=== PATIENT | female | born 1965 | race Caucasian/White ===

== ENCOUNTER 2017-01-09 16:32 | Emergency (ER) | payer BC, OTHER ==
[2017-01-09 16:38] VITALS: BP 162/90
--- NOTE | 2017-01-09 18:14 | UC ---
Desirae Heredia Edward, scribed for Mack Mendez MD on 01/09/17 at 1726 . Back Pain HPI - HPI Summary HPI Summary: 51 y/o female presents to [facility] c/o lower back spasms. Pain started this morning after exercising. Pain is located in the lower midline back radiating to the sides but not to the legs, rated at a 7/10 and characterized as an aching pain. Patient worked on the exterior of her house recently which required . PMHx lower back spasms around 2 years ago (similar sx). SHx bilateral knee surgery. NKDA. - History of Current Complaint Chief Complaint: UCBackPain Stated Complaint: BACK PAIN Time Seen by Provider: 01/09/17 17:18 Hx Obtained From: Patient Hx Last Menstrual Period: ablation Onset/Duration: Sudden Onset - This morning after exercising Severity Initially: Moderate Severity Currently: Moderate Pain Intensity: 7 Pain Scale Used: 0-10 Numeric Back Pain: Is Discrete @ - Lower midline back, Radiates To - Sides of back Character: Aching, Spasmodic Related History: Similar Episode Dx As - Similar sx 2 years ago - Allergies/Home Medications Allergies/Adverse Reactions: Allergies Allergy/AdvReac Type Severity Reaction Status Date / Time No Known Allergies Allergy Verified 01/09/17 16:38 PMH/Surg Hx/FS Hx/Imm Hx Previously Healthy: No GI/ History: Gastroesophageal Reflux Psychological History: Depression - Surgical History Surgical History: Yes Surgery Procedure, Year, and Place: laprascopic knee surgery 2012. uterine ablation 2000 - Family History Known Family History: Negative: Hypertension, Diabetes - Social History Alcohol Use: Occasionally Substance Use Type: None Smoking Status (MU): Never Smoked Tobacco Review of Systems Constitutional: Negative Skin: Negative Eyes: Negative ENT: Negative Respiratory: Negative Cardiovascular: Negative Gastrointestinal: Negative Genitourinary: Negative Motor: Negative Neurovascular: Negative Musculoskeletal: Myalgia - Lower back spasms Neurological: Negative Psychological: Negative All Other Systems Reviewed And Are Negative: Yes Physical Exam Triage Information Reviewed: Yes Appearance: Well-Appearing, Pain Distress - Mild Vital Signs: Initial Vital Signs Temp 98.7 F 01/09/17 16:35 Pulse 77 01/09/17 16:35 Resp 18 01/09/17 16:35 BP 162/90 01/09/17 16:35 Pulse Ox 98 01/09/17 16:35 Eye Exam: Normal ENT: Positive: Normal ENT inspection Neck: Positive: Supple, Nontender Respiratory: Positive: Lungs clear, Normal breath sounds Cardiovascular: Positive: RRR Abdomen Description: Positive: Nontender, Soft Bowel Sounds: Positive: Present Musculoskeletal: Positive: Strength Intact, Other: - Tenderness @ midline low back and @ paraspinus muscles bilaterally. Neurological: Positive: Alert, Other: - No sensation deficits. Good reflexes Psychological Exam: Normal Skin Exam: Normal Back Pain Course/Dx - Course Course Of Treatment: Medications reviewed on patient visit. PATIENT WILL CONTINUE IBUPROFEN. RX NORCO AND FLEXERIL. - Differential Dx/Diagnosis Provider Diagnoses: LOW BACK STRAIN Discharge - Discharge Plan Condition: Stable Disposition: HOME Prescriptions: Cyclobenzaprine TAB* [Flexeril 10 MG TAB*] 10 mg PO TID PRN #15 tab PRN Reason: Pain HYDROcodone/ACETAMIN 5-325 MG* [[place] 5-325 TAB*] 1 tab PO Q4H PRN #20 tab MDD 6 PRN Reason: Pain Patient Education Materials: Low Back Strain (ED), Lower Back Exercises (ED) Referrals: Edvin Santoyo MD [Primary Care Provider] - Additional Instructions: FOLLOW UP WITH YOUR DOCTOR. GET RECHECKED FOR ANY WORSENING OF YOUR CONDITION OR QUESTIONS OR CONCERNS. The documentation as recorded by the Desirae barr Edward accurately reflects the service I personally performed and the decisions made by me, Mack Mendez MD.
== END 2017-01-09 18:06 | disposition home or self-care (01) ==
LOC: UCEAST 16:32
DX: S39.012A Strain of muscle, fascia and tendon of lower back, initial encounter (principal); K21.9 Gastro-esophageal reflux disease without esophagitis; F32.9 Major depressive disorder, single episode, unspecified; M62.830 Muscle spasm of back; X58.XXXA Exposure to other specified factors, initial encounter
CPT/HCPCS: 99212; G0463

== ENCOUNTER 2017-07-17 10:11 | Emergency (ER) | payer BC ==
[2017-07-17 10:33] VITALS: BP 145/59
--- NOTE | 2017-07-17 11:26 | UC ---
Eye Complaint HPI - HPI Summary HPI Summary: 52 yo female with sinus pressure and pain over a week now with bilateral eye redness and d/c x 1 day L>R no f/c - History of Current Complaint Chief Complaint: UCEye Stated Complaint: SINUS COMPLAINT, EYE COMPLAINT Time Seen by Provider: 07/17/17 11:17 Hx Obtained From: Patient Hx Last Menstrual Period: ablation Onset/Duration: Gradual Onset, Lasting Days Timing: Constant Severity Initially: Mild Severity Currently: Moderate Pain Intensity: 2 - max sinsuses Pain Scale Used: 0-10 Numeric Location of Injury: Conjunctiva Aggravating Factor(s): Nothing Alleviating Factor(s): Nothing Associated Signs And Symptoms: Positive: Drainage (Purulent) - Allergies/Home Medications Allergies/Adverse Reactions: Allergies Allergy/AdvReac Type Severity Reaction Status Date / Time No Known Allergies Allergy Verified 01/09/17 16:38 PMH/Surg Hx/FS Hx/Imm Hx Previously Healthy: Yes - Surgical History Surgical History: Yes Surgery Procedure, Year, and Place: laprascopic knee surgery 2012. uterine ablation 2000 - Family History Known Family History: Negative: Hypertension, Diabetes - Social History Alcohol Use: Occasionally Substance Use Type: None Smoking Status (MU): Never Smoked Tobacco Review of Systems Constitutional: Negative Skin: Negative Eyes: Drainage, Eye Redness ENT: Nasal Discharge, Sinus Congestion, Sinus Pain/Tenderness Respiratory: Negative Cardiovascular: Negative Gastrointestinal: Negative Genitourinary: Negative Motor: Negative Neurovascular: Negative Musculoskeletal: Negative Neurological: Negative Psychological: Negative Is Patient Immunocompromised?: No All Other Systems Reviewed And Are Negative: Yes Physical Exam Triage Information Reviewed: Yes Appearance: Well-Appearing, No Pain Distress, Well-Nourished Vital Signs: Initial Vital Signs Temp 98.4 F 07/17/17 10:28 Pulse 88 07/17/17 10:28 Resp 20 07/17/17 10:28 BP 145/59 07/17/17 10:28 Pulse Ox 98 07/17/17 10:28 Eyes: Positive: Conjunctiva Inflamed, Discharge ENT: Positive: Hearing grossly normal, Pharynx normal, Nasal congestion, Nasal drainage, Sinus tenderness. Negative: Trismus, Muffled voice, Hoarse voice Neck: Positive: Supple, Nontender, No Lymphadenopathy Respiratory: Positive: Lungs clear, Normal breath sounds, No respiratory distress, No accessory muscle use Cardiovascular: Positive: RRR Musculoskeletal: Positive: ROM Intact, No Edema Neurological: Positive: Alert Psychological Exam: Normal Skin Exam: Normal Eye Complaint Course/Dx - Differential Dx/Diagnosis Provider Diagnoses: conjunctivitis (R/L). acute sinusitis Discharge - Discharge Plan Condition: Stable Disposition: HOME Prescriptions: Amoxicillin/Clavulanate TAB* [Augmentin TAB 875*] 875 mg PO BID #28 tab Fluconazole 150 MG (NF) [Diflucan 150 mg (NF)] 150 mg PO ONCE #1 tab Polymyx/Trimethoprim OPTH* [Polytrim OPHTH*] 1 - 2 drop BOTH EYES QID #1 btl Patient Education Materials: Sinusitis (ED), Conjunctivitis (ED) Referrals: Edvin Santoyo MD [Primary Care Provider] - 4 Days (if not better)
== END 2017-07-17 11:41 | disposition home or self-care (01) ==
LOC: UCEAST 10:11
DX: H10.33 Unspecified acute conjunctivitis, bilateral (principal); J01.90 Acute sinusitis, unspecified
CPT/HCPCS: 99212; G0463

== ENCOUNTER 2019-10-29 06:50 | Emergency (ER) | payer BC ==
[2019-10-29] MEDS ORDERED: NS 0.9% 1000 ML** 1,000 ML IV ONE (06:57)
--- NOTE | 2019-10-29 07:02 | ED ---
HPI Chest Pain - HPI Summary HPI Summary: 54-year-old female with no significant past medical history presents to the emergency department today with chief complaint of episodes lasting minutes of palpitations, fast heart rate, left anterior 3 out of 4 stabbing chest pain with associated left shoulder pain, lightheadedness and tingling in her bilateral arms 3 days. Patient states her symptoms are made worse with exertion stating her heart rate increases however she has no increase in her chest pain. Patient denies associated arm pain, jaw pain, diaphoresis, abdominal pain. Patient states she has had increased stress in her life lately due to the Covid pandemic. Patient denies past medical history of heart disease or dysrhythmia, thyroid disease, blood clots. Patient denies family history of dysrhythmia, thyroid disorders but states she does have a positive family history of heart disease. Patient denies recreational drug use, alcohol use and endorses moderate caffeine intake daily. Patient states due to her symptoms she had difficulty sleeping yesterday evening. Patient is otherwise well and denies fevers, rash, nausea, vomiting, diarrhea, sore throat, nasal congestion, cough, exposure to COVID19. - History of Current Complaint Chief Complaint: EDChestPainROMI Time Seen by Provider: 10/29/19 06:56 Hx Obtained From: Patient Hx Last Menstrual Period: ablation Onset/Duration: Started Days Ago Timing: Intermittent, Lasting Minutes Initial Severity: Mild Current Severity: Mild Pain Intensity: 3 Pain Scale Used: 0-10 Numeric Chest Pain Location: Left Anterior Chest Pain Radiates: Yes Chest Pain Radiates To:: Arm Character: Dyspnea at Exertion, Fluttering Aggravating Factor(s): Exertion Alleviating Factor(s): Rest Associated Signs and Symptoms: Positive: Chest Pain, Recent Stress, Tingling, Shortness of Breath. Negative: Vision Changes - Allergy/Home Medications Allergies/Adverse Reactions: Allergies Allergy/AdvReac Type Severity Reaction Status Date / Time No Known Allergies Allergy Verified 01/09/17 16:38 Home Medications: Home Medications Omeprazole CAP (NF) [Prilosec CAP* 20 MG] 20 mg PO BID 12/11/14 [History Confirmed 10/29/19] Calcium Carbonate [Calcium] 500 mg PO DAILY 10/29/19 [History Confirmed 10/29/19 ] Glucosam/Chondr/Collagn/Hyalur [Th Glucosamine/Chondroiti] 1 cap PO DAILY [History Confirmed 10/29/19] Multivitamins/Minerals TAB* [Theragran/minerals TAB*] 1 tab PO DAILY 10/29/19 [ History Confirmed 10/29/19] PMH/Surg Hx/FS Hx/Imm Hx Endocrine/Hematology History: Denies: Hx Diabetes, Hx Thyroid Disease Cardiovascular History: Denies: Hx Hypertension, Hx Pacemaker/ICD Respiratory History: Denies: Hx Asthma, Hx Chronic Obstructive Pulmonary Disease (COPD) GI History: Denies: Hx Ulcer Sensory History: Denies: Hx Hearing Aid Psychiatric History: Denies: Hx Panic Disorder - Surgical History Surgery Procedure, Year, and Place: laprascopic knee surgery 2012. uterine ablation 2000 Infectious Disease History: No Infectious Disease History: Denies: Hx Clostridium Difficile, Hx Hepatitis, Hx Human Immunodeficiency Virus (HIV), Hx of Known/Suspected MRSA, Hx Shingles, Hx Tuberculosis, Hx Known/ Suspected VRE, Hx Known/Suspected VRSA, History Other Infectious Disease, Traveled Outside the [place] in Last 30 Days - Family History Known Family History: Negative: Hypertension, Diabetes - Social History Alcohol Use: Occasionally Substance Use Type: Reports: None Smoking Status (MU): Never Smoked Tobacco Review of Systems Constitutional: Negative Eyes: Negative ENT: Negative Positive: Palpitations, Chest Pain Positive: Shortness Of Breath. Negative: Cough Gastrointestinal: Negative Genitourinary: Negative Musculoskeletal: Negative Skin: Negative Neurological/Mental Status: Negative Psychological: Normal All Other Systems Reviewed And Are Negative: Yes Physical Exam - Summary Physical Exam Summary: Patient is a 54-year-old obese female resting comfortably on the stretcher. Patient is well-nourished. MSK: Patient has no notable edema of the lower extremities with no ecchymosis or evidence of DVT. Patient has no evidence of trauma to the thoracic wall. Patient has full range of motion of the left shoulder with no pain. Negative Manley sign. Negative empty can test. No pain with palpation of the shoulder. Patient has intact to light touch throughout the upper extremities bilaterally. Patient has 5 out of 5 strength bilaterally in the upper extremities. Heart: Auscultation reveals tachycardia at a regular rhythm with S1, S2 no murmur noted. Lungs: Auscultation the lungs is clear. Patient speaks in full unlabored and unbroken sentences. Patient has no evidence of respiratory distress. Neck: No obvious goiter is appreciated however this is difficult to appreciate due to body habitus. Neuro: No tremors noted. Triage Information Reviewed: Yes Vital Signs On Initial Exam: Initial Vitals Temp Pulse Resp BP Pulse Ox 98.4 F 98 20 175/101 97 10/29/19 06:51 10/29/19 06:51 10/29/19 06:51 10/29/19 06:51 10/29/19 06:51 Vital Signs Reviewed: Yes Appearance: Positive: Well-Appearing, No Pain Distress, Well-Nourished Skin: Positive: Warm, Skin Color Reflects Adequate Perfusion Eyes: Positive: EOMI, SARMAD ENT: Positive: Hearing grossly normal Neck: Positive: Supple Respiratory/Lung Sounds: Positive: Clear to Auscultation, Breath Sounds Present Cardiovascular: Positive: Tachycardia, S1, S2 Abdomen Description: Positive: Nontender, Soft Musculoskeletal: Positive: Strength/ROM Intact Neurological: Positive: Sensory/Motor Intact, Alert, Oriented to Person Place, Time, Normal Gait, Facial Symmetry, Speech Normal Psychiatric: Positive: Normal, Affect/Mood Appropriate AVPU Assessment: Alert Procedures - Sedation Patient Received Moderate/Deep Sedation with Procedure: No Diagnostics - Vital Signs Vital Signs Temp Pulse Resp BP Pulse Ox 10/29/19 06:51 98.4 F 98 20 175/101 97 - Laboratory Result Diagrams: 10/29/19 07:50 10/29/19 07:50 Lab Statement: Any lab studies that have been ordered have been reviewed, and results considered in the medical decision making process. Chest Pain Course/Dx - Course Course Of Treatment: Patient was evaluated in the emergency department today for a sensation of palpitations, chest pain, shoulder pain with bilateral arm numbness. Vitals noted and stable. Patient is tachycardic upon arrival in the emergency department but does not appear toxic. Pt is in no acute distress. EKG is done promptly which shows no evidence of STEMI. Normal sinus rhythm at a rate of 94 bpm. Normal VA and QT interval. Normal axis. There are T-wave inversions in lead 3. There are no prior EKGs available for comparison. Labs returned showing no significant abnormalities. No evidence of leukocytosis, anemia, or electrolyte problems. Initial troponin 0.00. Serial troponins were waived as patient has been symptomatic for approximately 3 days. TSH is within normal limits. HEART score: 3. Wells Score for PE: 0. Repeat EKG was done prior to discharge which showed no changes when compared to EKG done on arrival. Patient's symptoms appear to be benign and there is no evidence of thyroid disorder, dysrhythmia, electronic disturbance or other pathology. Patient discharged to outpatient follow-up with cardiology. - Chest Pain Differential Diagnosis/HQI/PQRI: Acute OR, Pulmonary Embolism, Other: - Dysrhythmia, thyroid disorder, musculoskeletal disorder, metabolic abnormality, drug use, caffeine intake - Diagnoses Provider Diagnoses: Palpitations, Atypical chest pain, Left shoulder pain - Critical Care Time Critical Care Statement: Critical care time is provided exclusive of any time spent performing procedures. Discharge ED - Sign-Out/Discharge Documenting (check all that apply): Patient Departure - Discharge Plan Condition: Stable Disposition: HOME Patient Education Materials: Chest Pain (ED), Heart Palpitations (ED) Referrals: Fuentes Wagner MD [Medical Doctor] - 5 Days Additional Instructions: You were seen in the emergency department today due to chest pain. Cardiac workup was done today including an EKG and blood work which found no evidence of acute pathology requiring intervention at this time. Although I am uncertain what is causing your symptoms cardiac origin cannot be ruled out. 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 Please return to this emergency Department immediately if you develop any new or worsening symptoms. - Billing Disposition and Condition Condition: STABLE Disposition: Home
[2019-10-29 08:06] LABS: ABS Monocytes 0.4 10^3/ul (0-0.8); ABS Neutrophils 4.6 10^3/ul (1.5-7.7); Eosinophil % 0.1 %; Hematocrit 41 % (35-47); Hemoglobin 13.9 g/dL (12.0-16.0); Lymphocyte % 16.5 %; Mean Corpuscular HGB Conc 34 g/dL (31-36); Mean Corpuscular Hemoglobin 29 pg (27-31); Mean Corpuscular Volume 86 fL (80-97); Mean Platelet Volume 8.9 fL (7.4-10.4); Nucleated Red Blood Cells % 0.1; Platelet Count 239 10^3/uL (150-450); Red Blood Count 4.77 10^6 /uL (3.70-4.87); Red Cell Distribution Width 14 % (10-15); White Blood Count 5.9 10^3/uL (3.5-10.8)
[2019-10-29 08:23] LABS: Albumin/Globulin Ratio 1.3 (1-3); BUN/Creatinine Ratio 17.4 (8-20); C Reactive Protein 8.29 mg/L (<8.01); Calcium 9.2 mg/dL (8.6-10.3); EGFR African American 107.3 (>60); EGFR Non-African American 88.7 (>60); Magnesium 1.9 mg/dL (1.9-2.7); Potassium 3.8 mmol/L (3.5-5.0); Total Bilirubin 0.3 mg/dL (0.2-1.0)
[2019-10-29 09:09] LABS: TSH (Thyroid Stimulating Horm) 1.66 mcIU/mL (0.34-5.60)
[2019-10-29 10:09] VITALS: BP 156/83
== END 2019-10-29 10:09 | disposition home or self-care (01) ==
LOC: ED 06:50
DX: R07.89 Other chest pain (principal); R00.2 Palpitations; M25.512 Pain in left shoulder
CPT/HCPCS: 36415; 80053; 83735; 84443; 84484; 85025; 86140; 93005; 96360; 96361; 99283